=== PATIENT | female | born 1980 | race Caucasian/White ===

== ENCOUNTER 2017-03-14 09:04 | Emergency (ER) | payer SELFPAY ==
[~2017-03-14] VITALS: Ht 160 cm; Wt 77.5 kg
[2017-03-14 09:06] VITALS: Ht 160 cm; Wt 77.5 kg
[2017-03-14 09:53] LABS: ADD UMIC NO; UR ASCORBIC ACID NEGATIVE (NEGATIVE); UR BILIRUBIN (Dip) NEGATIVE (NEGATIVE); UR BLOOD (Dip) NEGATIVE (NEGATIVE); UR CLARITY CLEAR (CLEAR); UR COLOR YELLOW (YELLOW); UR GLUCOSE (Dip) NEGATIVE (NEGATIVE); UR KETONES (Dip) NEGATIVE (NEGATIVE); UR LEUKOCYTE ESTERASE (Dip) NEGATIVE Leu/ul (NEGATIVE); UR NITRITE (Dip) NEGATIVE (NEGATIVE); UR TOTAL PROTEIN (Dip) NEGATIVE (NEGATIVE); UR UROBILINOGEN (Dip) NEGATIVE (NEGATIVE)
[2017-03-14 10:04] LABS: BASOPHILS % 0.4 % (0.0-2.0); EOSINOPHILS # 0.2 10^3/ul (0.0-0.5); EOSINOPHILS % 2.9 % (0.0-7.0); HEMATOCRIT 40.3 % (37.0-47.0); HEMOGLOBIN 13.4 g/dl (12.0-16.0); LYMPHOCYTES # 2.3 10^3/ul (0.8-2.9); MEAN CORPUSCULAR HEMOGLOBIN 28.5 pg (29.0-33.0); MEAN CORPUSCULAR HGB CONC 33.3 g/dl (32.0-37.0); MEAN CORPUSCULAR VOLUME 85.6 fl (82.0-101.0); MEAN PLATELET VOLUME 9.5 fl (7.4-10.4); MONOCYTE # 0.4 10^3/ul (0.3-0.9); MONOCYTES % 5.4 % (0.0-11.0); NEUTROPHIL # 4.4 10^3/ul (1.6-7.5); NEUTROPHILS % 60.2 % (39.0-77.0); PLATELET COUNT 321 10^3/UL (140-415); RED BLOOD COUNT 4.71 10^6/ul (4.20-5.40); RED CELL DISTRIBUTION WIDTH 13.2 % (11.5-14.5); WHITE BLOOD COUNT 7.4 10^3/ul (4.8-10.8)
--- NOTE | 2017-03-14 10:33 | RADRPT ---
PROCEDURE: US Pelvis. CLINICAL INDICATION: Pelvic pain, vaginal bleeding TECHNIQUE: Multiple sonographic images of the pelvis were obtained utilizing a transabdominal and endovaginal technique. The images were reviewed on a PACS workstation. COMPARISON: None. FINDINGS: The uterus is anteverted and measures 8.9 x 4.9 x 4.7 cm. The endometrial echo complex is normal and measures 6 mm. The uterus is empty. There are no findings of intrauterine . No fibroids ar e visualized. There is no evidence for free fluid. The right ovary has a normal echotexture and bill ures 3.5 x 2.4 x 1.6 cm. The left ovary has a normal echotexture and measures 3 x 2.2 x 1.6 cm. No adnexal masses are noted. There are no findings of ovarian torsion. Normal follicular activity is present. IMPRESSION: Negative exam. No findings of fibroid, intrauterine or ectopic . RPTAT: EE .Daria Nelson MD, MD Date Time Electronically viewed and signed by .Daria Nelson MD, on 03/14/2017 10:33 .F/
[2017-03-14] MEDS ORDERED: ACET500C5 PO (11:11)
--- NOTE | 2017-03-14 11:22 | ERD ---
ER Documentation Chief Complaint Date/Time DATE: 03/14/17 TIME: 11:15 Chief Complaint vagibal bleeding and lower abdominal cramping - LMP 01/09/17 HPI 36-year-old female who is approximately 6 weeks present ED with vaginal bleeding and pelvic pain. Patient stated that she started spotting 4 days ago, the spotting stopped 2 days ago returned yesterday. This morning she discharged a "large clot". She took Tylenol yesterday for pain. Patient is , LMP 01/09/2017. Denies fever or chills. Denies dysuria. Denies nausea, vomiting, diarrhea. ROS All systems reviewed and are negative except as per history of present illness. Medications Home Meds Active Scripts Acetaminophen* (Tylophen*) 500 Mg Capsule, 1 CAP PO Q6H Y for PAIN AND OR ELEVATED TEMP, #20 CAP Prov:FABIAN ZENG Adriana. TOBACCO CUTTER 03/14/17 PMhx/Soc Medical and Surgical Hx: pt denies Medical Hx, pt denies Surgical Hx Hx Alcohol Use: No Hx Substance Use: No Smoking Status: Never smoker Physical Exam Vitals Vital Signs Date Time Temp Pulse Resp B/P Pulse Ox O2 Delivery O2 Flow Rate FiO2 03/14/17 09:06 98.1 72 19 114/76 100 Physical Exam General: Well-developed, well-nourished, conscious and coherent, in no distress Skin: Warm and dry without rash, good texture and turgor Head: Normocephalic without evidence of trauma Eyes: Sclera and conjunctivae normal; pupils equal, round, and reactive to light; extraocular movements are intact Chest: Normal AP diameter. Good expansion without retractions. Nontender. Lungs are clear to auscultate bilaterally with good tidal volume Heart: Regular rate and rhythm. No murmur, rub, or gallops heard Abdomen: Soft and nontender without masses, guarding, or rebound. Bowel sounds are active. No hepatosplenomegaly Back: Without spinal or CVA tenderness Pelvis: Pelvic tenderness. Extremities: Full range of motion. Good strength bilaterally. No clubbing, cyanosis, or edema. Peripheral pulses are intact. Sensation intact Neuro: Alert and oriented 4, GCS 15. Cranial nerves grossly intact. Motor and sensory exams nonfocal. Moves all extremities. Speech clear. Gait normal Result Diagram: 03/14/17 0941 Results 24 hrs Laboratory Tests Test 03/14/17 09:40 03/14/17 09:41 Urine Color YELLOW Urine Clarity CLEAR Urine pH 6.0 Urine Specific [place] 1.020 Urine Ketones NEGATIVEmg/dL Urine Nitrite NEGATIVEmg/dL Urine Bilirubin NEGATIVEmg/dL Urine Urobilinogen NEGATIVEmg/dL Urine Leukocyte Esterase NEGATIVELeu/ul Urine Hemoglobin NEGATIVEmg/dL Urine Glucose NEGATIVEmg/dL Urine Total Protein NEGATIVEmg/dl White Blood Count 7.410^3/ul Red Blood Count 4.7110^6/ul Hemoglobin 13.4g/dl Hematocrit 40.3% Mean Corpuscular Volume 85.6fl Mean Corpuscular Hemoglobin 28.5pg Mean Corpuscular Hemoglobin Concent 33.3g/dl Red Cell Distribution Width 13.2% Platelet Count 55612^3/UL Mean Platelet Volume 9.5fl Neutrophils % 60.2% Lymphocytes % 31.0% Monocytes % 5.4% Eosinophils % 2.9% Basophils % 0.4% Nucleated Red Blood Cells % 0.0/100WBC Neutrophils # 4.410^3/ul Lymphocytes # 2.310^3/ul Monocytes # 0.410^3/ul Eosinophils # 0.210^3/ul Basophils # 0.010^3/ul Nucleated Red Blood Cells # 0.010^3/ul Beta HCG, Quantitative 120.5mIU/ml PROCEDURE: US Pelvis. CLINICAL INDICATION: Pelvic pain, vaginal bleeding TECHNIQUE: Multiple sonographic images of the pelvis were obtained utilizing a transabdominal and endovaginal technique. The images were reviewed on a PACS workstation. COMPARISON: None. FINDINGS: The uterus is anteverted and measures 8.9 x 4.9 x 4.7 cm. The endometrial echo complex is normal and measures 6 mm. The uterus is empty. There are no findings of intrauterine . No fibroids are visualized. There is no evidence for free fluid. The right ovary has a normal echotexture and measures 3.5 x 2.4 x 1.6 cm. The left ovary has a normal echotexture and measures 3 x 2.2 x 1.6 cm. No adnexal masses are noted. There are no findings of ovarian torsion. Normal follicular activity is present. IMPRESSION: Negative exam. No findings of fibroid, intrauterine or ectopic . RPTAT: EE .Daria Nelson MD, MD Date Time Electronically viewed and signed by .Daria Nelson MD, MD on 03/14/2017 10:33 .F/ CC: FABIAN ZENG TOBACCO CUTTER Procedures/MDM ED course: CBC: Unremarkable. Beta hC.5 UA: Negative. Blood type: Positive. RhoGAM is not indicated for patient. OB ultrasound: Intrauterine or ectopic is seen on ultrasound Medical decision-making: Well-appearing 36-year-old female who is approximately 6 weeks present ED with vaginal bleeding and pelvic pain. Patient likely had a complete as there is no evidence of intrauterine , and her beta hCG quant is 120, exceedingly low for 6 weeks gestation. Patient has follow-up appointment with her OB clinic tomorrow. Advised patient to keep her appointment. Also advised patient to return to the OB if her vaginal bleeding does not stop after 7 days. Medications on discharge: Tylenol. Follow-up: Primary care provider in 2 days or return to ED if worse. Disclaimer: Inadvertent spelling and grammatical errors are likely due to EHR/ dictation software use and do not reflect on the overall quality of patient care. Also, please note that the electronic time recorded on this note does not necessarily reflect the actual time of the patient encounter. Departure Diagnosis: Primary Impression: Complete Condition: Stable Patient Instructions: Miscarriage, Spontaneous (Completed) Referrals: [facility] Usted se meyer hecho un examen mdico de control que le indica que no est en kamran condicin que requiera tratamiento urgente en el Departamento de Emergencia. Un estudio ms profundo y el tratamiento de dickerson condicin pueden esperar sin ningn riesgo hasta que usted sea atendida/o en el consultorio de dickerson mdico o kamran cl vikki. Es responsabilidad suya arreglar kamran kaiser para el seguimiento del frederic. MANEJO DE CONDICIONES NO URGENTES EN EL FUTURO 1) Si usted tiene un mdico de atencin primaria: Usted debera llamar a dickerson mdico de atencin primaria antes de venir al departamento de emergencia. Despus de las horas de consultorio, dickerson doctor o dickerson asociado/a est disponible por telfono. El mdico o enfermero de john paul en el servicio telefnico puede asesorarle por murray medio para atender el problema, o frederic contrario se puede programar kamran kaiser. 2) Si usted no tiene un mdico de atencin primaria: Llame al mdico o clnica de referencia que aparece abajo xenia las horas de consultorio para hacer kamran kaiser para que le vean. CLINICAS: [facility] [phone] [facility] [phone] [facility] [facility] [phone] [address] [facility] [phone] [address] [facility]. [facility] [place] [place] [phone] [address] [facility] [phone] S[place] DRAFTER [employer] [place] [address] [facility] [address] [place], [place] [id number] OFFICE FAX HEMA MINER [address] [place], [place] [phone] [address] [place] [address] [place], [place] [phone] ANA CONTRERAS [address] [facility], [address], [facility] [address] ATIYA VASQUEZ [address] [facility], [place], [place] [id number] [facility] [address] [place], [place] [address] [address] [facility] [id number] - DR JAIMES, MARA [address], [facility] [address] [address] SEVERINO, ZECHARIAH [address] [facility]. [address], [facility] [address] [address] GONZALEZ, FARID [address] [place] [address] Additional Instructions: Visite a dickerson olesya collins para un EXAMEN.Regrese a estas instalaciones si no se mejora colleen esperbamos o colleen le dijimos. FABIAN ZENG NP Mar 14, 2017 11:22
== END 2017-03-14 11:17 | disposition home or self-care (01) ==
LOC: FTE 09:04
DX: O03.9 Complete or unspecified spontaneous abortion without complication (principal); R10.2 Pelvic and perineal pain; Z3A.01 Less than 8 weeks gestation of pregnancy
CPT/HCPCS: 36415; 76801; 76817; 81003; 84702; 85025; 86900; 86901

== ENCOUNTER 2017-11-18 16:20 | Emergency (ER) | END 2017-11-18 20:11 | disposition home or self-care (01) ==

== ENCOUNTER 2017-11-21 01:15 | Emergency (ER) | END 2017-11-21 04:33 | disposition left against medical advice (07) ==

== ENCOUNTER 2017-11-29 09:36 | Day surgery (SDC) | END 2017-11-29 21:10 | disposition home or self-care (01) ==